=== PATIENT | female | born 1975 | race Caucasian/White ===

== ENCOUNTER 2018-10-10 09:00 | Day surgery (SDC) | payer OTHER ==
[~2018-10-10] VITALS: Ht 149.9 cm; Wt 62.6 kg
[2018-10-10] MEDS ORDERED: ONDANSETRON HCL 4 MG/2 ML VIAL IVP PRN ×2 (09:15→12:30)
[2018-10-10] MEDS ORDERED: KETOROLAC TROMETHAMINE 30 MG VIAL IVP PRN (09:15)
[2018-10-10] MEDS ORDERED: fentaNYL CITRATE/PF 100 MCG/2 ML AMP IVP PRN ×2 (09:15)
[2018-10-10] MEDS ORDERED: fentaNYL CITRATE/PF 100 MCG/2 ML AMP IVP ONE (11:31)
[2018-10-10] MEDS ORDERED: SILVER NITRATE APPLICATOR 1 STICK STICK..EA. TP ONE (11:31)
[2018-10-10] MEDS ORDERED: SEVOFLURANE 15 MIN GAS INH ONE (11:31)
[2018-10-10] MEDS ORDERED: NS IRRIG SOLN 5000 ML IR ONE (11:31)
[2018-10-10] MEDS ORDERED: NS IRRIG SOLN 1000 ML IR ONE (11:31)
[2018-10-10] MEDS ORDERED: MIDAZOLAM HCL 5 MG/5 ML VIAL IVP ONE (11:31)
[2018-10-10] MEDS ORDERED: KETOROLAC TROMETHAMINE 30 MG VIAL IVP ONE (11:31)
[2018-10-10] MEDS ORDERED: LR 1,000 ML IV.SOLN IV ONE (11:31)
[2018-10-10] MEDS ORDERED: PROPOFOL 200MG/ 20ML VIAL (DIPRIVAN) IV ONE (11:31)
[2018-10-10] MEDS ORDERED: OXYCODONE/ACETAMINOPHEN 5-325 TABLET PO PRN ×2 (12:30)
[2018-10-10] MEDS ORDERED: fentaNYL CITRATE/PF 100 MCG/2 ML AMP ONE (12:55)
[2018-10-10 13:18] VITALS: BP_SYST 119
== END 2018-10-10 14:30 | disposition home or self-care (01) ==
LOC: SDS 09:00 → SMU 09:00 → SDS 14:30
PROVIDERS: ATTEND Obstetrics & Gynecology
DX: D25.0 Submucous leiomyoma of uterus (principal); E03.9 Hypothyroidism, unspecified; K21.0 Gastro-esophageal reflux disease with esophagitis; E55.9 Vitamin D deficiency, unspecified; Z79.899 Other long term (current) drug therapy; J45.909 Unspecified asthma, uncomplicated; M54.16 Radiculopathy, lumbar region
CPT/HCPCS: 36415; 58561; 86886; 86900; 86901; 88305; C1819; J3010; J7120; J1885; J2250; J2704